=== PATIENT | male | born 1965 | race American Indian/Alaskan Native ===

== ENCOUNTER 2018-02-25 14:32 | Inpatient (IN) | payer OTHER ==
[2018-02-25 14:54] VITALS: BMI 24.5
--- NOTE | 2018-02-25 16:46 | HP ---
CIWA Score - Admission Criteria [facility]ASAS Guidelines: Admission for Medically Managed Detox: Requires at least one of the followin. CIWA greater than 12 2. Seizures within the past 24 hours 3. Delirium tremens within the past 24 hours 4. Hallucinations within the past 24 hours 5. Acute intervention needed for co occurring medical disorder 6. Acute intervention needed for co occurring psychiatric disorder 7. Severe withdrawal that cannot be handled at a lower level of care (continued vomiting, continued diarrhea, abnormal vital signs) requiring intravenous medication and/or fluids 8. Admission ROS BHS - HPI Chief Complaint: 53 yo just finished 7 day detox at [facility]. Left the hospital 1 week ago. Says he has not had any alcohol since then. Would like to stop drinking. Denies use of other drugs. Does not have family closeby. Med problems: Seizures- says from head injury BPH-on flomax h/o CVA: resolved, no focal weakness Poor memory: says he may have head injury in the past- does not remember details Does not work, PCP at [facility] DUR: no controlled substances Utox- no substancesm except BZO- from detox last week. pt denies use Allergies/Adverse Reactions: Allergies Allergy/AdvReac Type Severity Reaction Status Date / Time No Known Allergies Allergy Verified 02/25/18 16:52 Exam Limitations: No Limitations, Clinical Condition, Other (pt states has poor memory) - Ebola screening Have you traveled outside of the country in the last 21 days: No Have you had contact with anyone from an Ebola affected area: No Have you been sick,other than usual withdrawal symptoms: No Do you have a fever: No Patient History - Patient Medical History Hx Hypercholesterolemia: Yes Hx Dementia: Yes (pt states he has poor memory- h/o head injury? Pt does not remember) Hx Depression: Yes Other Medical History: BPH, nasal congestion - Patient Surgical History Other Surgical History: h/o amputations of R hand- missing 4th finger and partial amputation of 2nd - PPD History Previous Implant?: Yes - Smoking Cessation Smoking history: Current every day smoker Have you smoked in the past 12 months: Yes Aproximately how many cigarettes per day: 5 Hx Chewing Tobacco Use: No Initiated information on smoking cessation: Yes 'Breaking Loose' booklet given: 02/25/18 - Substance & Tx. History Hx Alcohol Use: Yes - Substances Abused Alcohol-vodka Amount used: 1-2 pts. Age of first use: 20 Date of Last Use: 02/18/18 Family Disease History - Family Disease History Family History: Unable to Obtain (pt does not remember) Admission Physical Exam S - Vital Signs Vital Signs: Vital Signs - 24 hr 02/25/18 14:52 Temperature 98.3 F Pulse Rate 77 Respiratory 20 Rate Blood Pressure 122/70 - Physical General Appearance: Yes: Within Normal Limits HEENTM: Yes: Within Normal Limits Respiratory: Yes: Within Normal Limits Neck: Yes: Within Normal Limits Cardiology: Yes: Within Normal Limits Abdominal: Yes: Within Normal Limits Genitourinary: Yes: Within Normal Limits Back: Yes: Within Normal Limits Musculoskeletal: Yes: Within Normal Limits Extremities: Yes: Within Normal Limits, Other (missing R hand fingers- 4th and partial 2nd finger from [employer]) Neurological: Yes: Within Normal Limits, Fully Oriented, Alert, Normal Response , Other (remembered 2/3 items in memory) Integumentary: Yes: Within Normal Limits Lymphatic: Yes: Within Normal Limits BHS Breath Alcohol Content Breath Alcohol Content: 0 Urine Drug Screen - Results Drug Screen Negative: No Urine Drug Screen Results: BZO-Benzodiazepines Inpatient Rehab Admission - Initial Determination Are CD services needed?: Yes Free of communicable disease: Yes Not in need of hospitalization: Yes - Rehab Admission Criteria Previous failed treatment: Yes Poor recovery environment: Yes Comorbidities: Yes Lacks judgement: No Patient is meeting Inpatient Rehab admission criteria:: Yes (pt just completed alcohol detox- referred by comp field case manager)
[2018-02-25] MEDS ORDERED: LOPERAMIDE HCL 2 MG CAPSULE PO PRN (17:20)
[2018-02-25] MEDS ORDERED: P-EPHED 60MG/TRIPROLIDI 2.5MG TABLET PO PRN (17:20)
[2018-02-25] MEDS ORDERED: MENTHOL/PHENOL 1 EACH UD MM PRN (17:20)
[2018-02-25] MEDS ORDERED: IBUPROFEN 400 MG TABLET (FP) PO PRN (17:20)
[2018-02-25] MEDS ORDERED: MAG HYDROX/AL HYDROX/SIMETH 30 ML UNIT-DOSE CUP PO PRN (17:20)
[2018-02-25] MEDS ORDERED: hydrOXYzine PAMOATE 25 MG CAPSULE (FP) PO PRN (17:20)
[2018-02-25] MEDS ORDERED: MAGNESIUM CITRATE 300 ML BOTTLE PO PRN (17:20)
[2018-02-25] MEDS ORDERED: MAGNESIUM HYDROX 2400MG/30ML ORAL SUSPENSION 30 ML CUP PO PRN (17:20)
[2018-02-25] MEDS ORDERED: ACETAMINOPHEN 325 MG TABLET (FP) PO PRN (17:20)
[2018-02-25] MEDS ORDERED: guaiFENesin/D-METHORPHAN HB 10 ML UNIT-DOSE CUPS PO PRN (17:20)
[2018-02-25] MEDS: THIAMINE HCL 100 MG TABLET (FP) PO SCH (21:07)
[2018-02-25] MEDS: PHENYTOIN NA EXTENDED 100 MG CAPSULE (FP) PO SCH (21:45)
[2018-02-25] MEDS ORDERED: MELATONIN 5 MG TABLETS PO PRN (22:00)
[2018-02-25] MEDS ORDERED: TUBERCULIN PPD 5 TU/0.1ML VIAL ID ONE (22:32)
[2018-02-26] MEDS: PHENYTOIN NA EXTENDED 100 MG CAPSULE (FP) PO SCH ×3 (06:42→21:08)
[2018-02-26] MEDS: PRENATAL VITAMINS W/ FOLIC ACID TABLET (FP) PO SCH (09:51)
[2018-02-26] MEDS: NICOTINE 14 MG/24 HOURS TOPICAL PATCH TD SCH (09:51)
[2018-02-26] MEDS: TAMSULOSIN HCL 0.4 MG CAP PO SCH (09:51)
[2018-02-26] MEDS: FLUTICASONE PROP 0.05% 16 GM NASAL SPRAY NS SCH (09:52)
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
[2018-02-26 10:21] LABS: URINE APPEARANCE CLEAR; URINE BILIRUBIN NEGATIVE (<2.0 mg/dL); URINE COLOR LTYELLOW; URINE GLUCOSE (UA) NEGATIVE (NEGATIVE); URINE KETONE NEGATIVE (NEGATIVE); URINE LEUK ESTERASE NEGATIVE (NEGATIVE); URINE NITRITE NEGATIVE (NEGATIVE); URINE PROTEIN NEGATIVE (NEGATIVE); URINE UROBILINOGEN NEGATIVE mg/dL (0.2-1.0)
[2018-02-26] MEDS: SERTRALINE HCL 50 MG TABLET (FP) PO SCH (13:09)
[2018-02-26] MEDS: AMMONIUM LACTATE 12% LOTION 225 GM BOTTLE TP SCH (15:55)
[2018-02-26 16:26] LABS: HEMATOCRIT 39.4 % (35.4-49); HEMOGLOBIN 13.6 GM/dL (11.7-16.9); MCH 35.8 pg (25.7-33.7); MCHC 34.6 g/dl (32.0-35.9); MEAN CELL VOLUME 103.6 fl (80-96); MEAN PLT VOLUME 7.6 fl (7.5-11.1); PLATELET COUNT 392 K/MM3 (134-434); RBC 3.81 M/mm3 (4.00-5.60); RDW 15.8 % (11.9-15.9); WHITE BLOOD COUNT 5.5 K/mm3 (4.0-10.0)
[2018-02-26 17:15] LABS: ALBUMIN 3.7 g/dl (3.4-5.0); ALK PHOS 141 U/L (45-117); ANION GAP 7 MMOL/L (8-16); BILIRUBIN,TOTAL 0.2 mg/dL (0.2-1); BLOOD UREA NITROGEN 12 mg/dL (7-18); CALCIUM 8.8 mg/dL (8.5-10.1); CHLORIDE 107 mmol/L (98-107); CO2 27 mmol/L (21-32); CREATININE 0.8 mg/dL (0.55-1.3); GLUCOSE,RANDOM 100 mg/dL (74-106); POTASSIUM 4.2 mmol/L (3.5-5.1); SGOT/AST 29 U/L (15-37); SGPT/ALT 63 U/L (13-61); SODIUM 140 mmol/L (136-145)
[2018-02-26] MEDS: THIAMINE HCL 100 MG TABLET (FP) PO SCH (21:08)
[2018-02-27] MEDS: PHENYTOIN NA EXTENDED 100 MG CAPSULE (FP) PO SCH ×3 (06:48→21:13)
[2018-02-27] MEDS: FLUTICASONE PROP 0.05% 16 GM NASAL SPRAY NS SCH (09:57)
[2018-02-27] MEDS: NICOTINE 14 MG/24 HOURS TOPICAL PATCH TD SCH (09:57)
[2018-02-27] MEDS: PRENATAL VITAMINS W/ FOLIC ACID TABLET (FP) PO SCH (09:57)
[2018-02-27] MEDS: TAMSULOSIN HCL 0.4 MG CAP PO SCH (10:40)
[2018-02-27] MEDS: SERTRALINE HCL 50 MG TABLET (FP) PO SCH (10:41)
[2018-02-27] MEDS: AMMONIUM LACTATE 12% LOTION 225 GM BOTTLE TP SCH (10:41)
[2018-02-27] MEDS: ATORVASTATIN CA 10 MG TABLET (FP) PO SCH (21:13)
[2018-02-27] MEDS: THIAMINE HCL 100 MG TABLET (FP) PO SCH (21:13)
[2018-02-27] MEDS: RANITIDINE HCL 150 MG TABLET (FP) PO SCH (21:13)
[2018-02-28] MEDS: PHENYTOIN NA EXTENDED 100 MG CAPSULE (FP) PO SCH ×3 (07:04→21:20)
[2018-02-28] MEDS: TAMSULOSIN HCL 0.4 MG CAP PO SCH (09:29)
[2018-02-28] MEDS: PRENATAL VITAMINS W/ FOLIC ACID TABLET (FP) PO SCH (09:29)
[2018-02-28] MEDS: SERTRALINE HCL 50 MG TABLET (FP) PO SCH (09:29)
[2018-02-28] MEDS: NICOTINE 14 MG/24 HOURS TOPICAL PATCH TD SCH (09:30)
[2018-02-28] MEDS: FLUTICASONE PROP 0.05% 16 GM NASAL SPRAY NS SCH (11:25)
[2018-02-28] MEDS: RANITIDINE HCL 150 MG TABLET (FP) PO SCH ×2 (11:26→21:20)
[2018-02-28] MEDS: AMMONIUM LACTATE 12% LOTION 225 GM BOTTLE TP SCH (11:26)
[2018-02-28] MEDS: THIAMINE HCL 100 MG TABLET (FP) PO SCH (21:20)
[2018-02-28] MEDS: ATORVASTATIN CA 10 MG TABLET (FP) PO SCH (21:20)
[2018-03-01] MEDS: PHENYTOIN NA EXTENDED 100 MG CAPSULE (FP) PO SCH ×3 (06:12→21:05)
[2018-03-01] MEDS: TAMSULOSIN HCL 0.4 MG CAP PO SCH (09:57)
[2018-03-01] MEDS: SERTRALINE HCL 50 MG TABLET (FP) PO SCH (09:57)
[2018-03-01] MEDS: FLUTICASONE PROP 0.05% 16 GM NASAL SPRAY NS SCH (09:57)
[2018-03-01] MEDS: NICOTINE 14 MG/24 HOURS TOPICAL PATCH TD SCH (09:57)
[2018-03-01] MEDS: RANITIDINE HCL 150 MG TABLET (FP) PO SCH ×2 (09:57→21:05)
[2018-03-01] MEDS: AMMONIUM LACTATE 12% LOTION 225 GM BOTTLE TP SCH (09:57)
[2018-03-01] MEDS: PRENATAL VITAMINS W/ FOLIC ACID TABLET (FP) PO SCH (10:02)
[2018-03-01] MEDS: BACITRACIN 0.9 GM PACKET TP SCH (21:05)
[2018-03-01] MEDS: THIAMINE HCL 100 MG TABLET (FP) PO SCH (21:05)
[2018-03-01] MEDS: ATORVASTATIN CA 10 MG TABLET (FP) PO SCH (21:05)
[2018-03-02] MEDS: PHENYTOIN NA EXTENDED 100 MG CAPSULE (FP) PO SCH ×3 (06:54→21:07)
[2018-03-02] MEDS ORDERED: COLLOIDAL OATMEAL 1 BAR EACH TP PRN (07:19)
[2018-03-02] MEDS: PRENATAL VITAMINS W/ FOLIC ACID TABLET (FP) PO SCH (09:54)
[2018-03-02] MEDS: RANITIDINE HCL 150 MG TABLET (FP) PO SCH ×2 (09:54→21:07)
[2018-03-02] MEDS: FLUTICASONE PROP 0.05% 16 GM NASAL SPRAY NS SCH (09:54)
[2018-03-02] MEDS: BACITRACIN 0.9 GM PACKET TP SCH ×2 (09:54→21:07)
[2018-03-02] MEDS: TAMSULOSIN HCL 0.4 MG CAP PO SCH (09:54)
[2018-03-02] MEDS: SERTRALINE HCL 50 MG TABLET (FP) PO SCH (09:54)
[2018-03-02] MEDS: AMMONIUM LACTATE 12% LOTION 225 GM BOTTLE TP SCH (09:55)
[2018-03-02] MEDS: NICOTINE 14 MG/24 HOURS TOPICAL PATCH TD SCH (09:55)
--- NOTE | 2018-03-02 13:45 | PN ---
BHS Progress Note Note: C/O OLD SCAB ON THE NOSE DUE TO PREVIOUS FALL WEEKS AGO. PT ALREADY ON BACITRACIN OINTMENT. ALSO C/O OF " FUNGAL ITCH" ON GROIN AREA. Vital Signs - 24 hr 03/02/18 03/02/18 03/02/18 00:30 03:30 06:43 Temperature 98.2 F Pulse Rate 78 Respiratory 18 18 16 Rate Blood Pressure 119/70 HEALING SCAR ON BRIDGE OF NOSE. PLAN:CONTINUE BACITRACIN OINTMENT ON NOSE BRIDGE TINACTIN CREAM APPLY DIRECTED.
[2018-03-02] MEDS: TOLNAFTATE 1% CREAM 15 GM TUBE TP SCH ×2 (14:06→21:08)
[2018-03-02] MEDS: ATORVASTATIN CA 10 MG TABLET (FP) PO SCH (21:07)
[2018-03-02] MEDS: THIAMINE HCL 100 MG TABLET (FP) PO SCH (21:07)
[2018-03-03] MEDS: PHENYTOIN NA EXTENDED 100 MG CAPSULE (FP) PO SCH ×3 (07:00→21:02)
[2018-03-03] MEDS: SERTRALINE HCL 50 MG TABLET (FP) PO SCH (09:43)
[2018-03-03] MEDS: PRENATAL VITAMINS W/ FOLIC ACID TABLET (FP) PO SCH (09:43)
[2018-03-03] MEDS: RANITIDINE HCL 150 MG TABLET (FP) PO SCH ×2 (09:43→21:02)
[2018-03-03] MEDS: TAMSULOSIN HCL 0.4 MG CAP PO SCH (09:43)
[2018-03-03] MEDS: BACITRACIN 0.9 GM PACKET TP SCH ×2 (09:43→21:02)
[2018-03-03] MEDS: NICOTINE 14 MG/24 HOURS TOPICAL PATCH TD SCH (09:43)
[2018-03-03] MEDS: FLUTICASONE PROP 0.05% 16 GM NASAL SPRAY NS SCH ×2 (09:46→21:03)
[2018-03-03] MEDS: AMMONIUM LACTATE 12% LOTION 225 GM BOTTLE TP SCH (09:47)
[2018-03-03] MEDS: TOLNAFTATE 1% CREAM 15 GM TUBE TP SCH ×2 (09:47→21:07)
[2018-03-03] MEDS: THIAMINE HCL 100 MG TABLET (FP) PO SCH (21:02)
[2018-03-03] MEDS: ATORVASTATIN CA 10 MG TABLET (FP) PO SCH (21:02)
[2018-03-04] MEDS: PHENYTOIN NA EXTENDED 100 MG CAPSULE (FP) PO SCH ×3 (06:14→21:03)
[2018-03-04] MEDS: BACITRACIN 0.9 GM PACKET TP SCH ×2 (10:07→21:01)
[2018-03-04] MEDS: SERTRALINE HCL 50 MG TABLET (FP) PO SCH ×2 (10:07→10:13)
[2018-03-04] MEDS: FLUTICASONE PROP 0.05% 16 GM NASAL SPRAY NS SCH ×2 (10:08→21:04)
[2018-03-04] MEDS: TAMSULOSIN HCL 0.4 MG CAP PO SCH (10:08)
[2018-03-04] MEDS: AMMONIUM LACTATE 12% LOTION 225 GM BOTTLE TP SCH (10:08)
[2018-03-04] MEDS: NICOTINE 14 MG/24 HOURS TOPICAL PATCH TD SCH (10:10)
[2018-03-04] MEDS: PRENATAL VITAMINS W/ FOLIC ACID TABLET (FP) PO SCH (10:11)
[2018-03-04] MEDS: TOLNAFTATE 1% CREAM 15 GM TUBE TP SCH ×2 (10:12→21:03)
[2018-03-04] MEDS: RANITIDINE HCL 150 MG TABLET (FP) PO SCH ×2 (10:12→21:03)
[2018-03-04] MEDS: ATORVASTATIN CA 10 MG TABLET (FP) PO SCH (21:01)
[2018-03-04] MEDS: THIAMINE HCL 100 MG TABLET (FP) PO SCH (21:01)
[2018-03-04] MEDS: HYDROCORTISONE 1% TOPICAL CREAM 30 GM TUBE TP SCH (21:05)
[2018-03-05] MEDS: PHENYTOIN NA EXTENDED 100 MG CAPSULE (FP) PO SCH ×3 (06:23→21:11)
[2018-03-05] MEDS: PRENATAL VITAMINS W/ FOLIC ACID TABLET (FP) PO SCH (10:06)
[2018-03-05] MEDS: TAMSULOSIN HCL 0.4 MG CAP PO SCH (10:07)
[2018-03-05] MEDS: RANITIDINE HCL 150 MG TABLET (FP) PO SCH ×2 (10:07→21:11)
[2018-03-05] MEDS: BACITRACIN 0.9 GM PACKET TP SCH ×2 (10:07→21:11)
[2018-03-05] MEDS: FLUTICASONE PROP 0.05% 16 GM NASAL SPRAY NS SCH ×2 (10:08→21:11)
[2018-03-05] MEDS: NICOTINE 14 MG/24 HOURS TOPICAL PATCH TD SCH (10:11)
[2018-03-05] MEDS: HYDROCORTISONE 1% TOPICAL CREAM 30 GM TUBE TP SCH ×2 (10:11→22:08)
[2018-03-05] MEDS: TOLNAFTATE 1% CREAM 15 GM TUBE TP SCH ×2 (10:12→21:13)
[2018-03-05] MEDS: AMMONIUM LACTATE 12% LOTION 225 GM BOTTLE TP SCH (10:13)
[2018-03-05] MEDS: THIAMINE HCL 100 MG TABLET (FP) PO SCH (21:11)
[2018-03-05] MEDS: ATORVASTATIN CA 10 MG TABLET (FP) PO SCH (21:11)
[2018-03-06] MEDS: PHENYTOIN NA EXTENDED 100 MG CAPSULE (FP) PO SCH ×3 (07:00→23:31)
[2018-03-06 07:03] VITALS: BP 116/68; PULSE 85; TEMP 97.8
[2018-03-06] MEDS: SERTRALINE HCL 50 MG TABLET (FP) PO SCH (09:42)
[2018-03-06] MEDS: RANITIDINE HCL 150 MG TABLET (FP) PO SCH ×2 (09:42→23:33)
[2018-03-06] MEDS: BACITRACIN 0.9 GM PACKET TP SCH ×2 (09:42→23:31)
[2018-03-06] MEDS: FLUTICASONE PROP 0.05% 16 GM NASAL SPRAY NS SCH ×2 (09:42→23:31)
[2018-03-06] MEDS: PRENATAL VITAMINS W/ FOLIC ACID TABLET (FP) PO SCH (09:42)
[2018-03-06] MEDS: TAMSULOSIN HCL 0.4 MG CAP PO SCH (09:42)
[2018-03-06] MEDS: HYDROCORTISONE 1% TOPICAL CREAM 30 GM TUBE TP SCH ×2 (09:43→23:31)
[2018-03-06] MEDS: AMMONIUM LACTATE 12% LOTION 225 GM BOTTLE TP SCH (09:43)
[2018-03-06] MEDS: NICOTINE 14 MG/24 HOURS TOPICAL PATCH TD SCH (09:44)
[2018-03-06] MEDS: TOLNAFTATE 1% CREAM 15 GM TUBE TP SCH ×2 (09:46→23:32)
[2018-03-06] MEDS ORDERED: LACTATED RINGERS SOLUTION 1,000 ML/1,000 ML INFUS.BAG IV SCH (23:15)
[2018-03-06] MEDS: THIAMINE HCL 100 MG TABLET (FP) PO SCH (23:32)
[2018-03-06] MEDS: ATORVASTATIN CA 10 MG TABLET (FP) PO SCH (23:32)
[2018-03-07] MEDS ORDERED: ENOXAPARIN NA (PORCINE) 40 MG/0.4 ML DISP.SYRIN SQ SCH (10:00)
== END 2018-03-07 01:07 | disposition short-term general hospital (02) | DRG 895 ==
LOC: YASAS 14:32 → Y5N 17:34
PROVIDERS: ADMIT Psychiatry & Neurology Psychiatry; ATTEND Internal Medicine
PROC: HZ42ZZZ Group Counseling for Substance Abuse Treatment, Cognitive-Behavioral (ICD-10-PCS; principal; 2018-02-25)
DX: F10.20 Alcohol dependence, uncomplicated (principal); F33.9 Major depressive disorder, recurrent, unspecified; F19.282 Other psychoactive substance dependence with psychoactive substance-induced sleep disorder; F17.210 Nicotine dependence, cigarettes, uncomplicated; F06.30 Mood disorder due to known physiological condition, unspecified; F19.24 Other psychoactive substance dependence with psychoactive substance-induced mood disorder; G40.909 Epilepsy, unspecified, not intractable, without status epilepticus; E78.5 Hyperlipidemia, unspecified; B35.6 Tinea cruris; N40.0 Benign prostatic hyperplasia without lower urinary tract symptoms; Z89.021 Acquired absence of right finger(s); Z86.73 Personal history of transient ischemic attack (TIA), and cerebral infarction without residual deficits
CPT/HCPCS: 36415; 80053; 81003; 85027; 86593; 87389

== ENCOUNTER 2018-03-06 18:50 | Inpatient (IN) | payer OTHER ==
--- NOTE | 2018-03-06 18:57 | PDOC ---
Attending Attestation - HPI HPI: 03/06/18 19:20 Patient is a 53 year old male with past medical history of alcohol abuse, seizures (on dilantin), history of CVA (no residual deficits), and depression who arrives via EMS from [facility] s/p seizure tonight. As per EMS, patient was witnessed to have a seizure by his roommate and was seen foaming at his mouth. When EMS arrived, patient was postictal, yet responsive. En route to ED, patient began seizing again and 5 of Versed was given. Activity lasted about 2 minutes, but patient became unresponsive afterwords. In the ED, patient is responsive to painful stimuli, O2 sat was 93 on room air, 99.4 rectal temperature, and fingerstick was 97. Patient underwent detox in [facility] last week and is being treated at [facility] for withdrawal since 02/25/18. As per nurses at [facility], patient reports he "wasn't feeling well" the past few days and note a decrease in appetite and feeling tired overall. - Physicial Exam PE: 03/06/18 19:22 GENERAL: somnolent, responsive to painful stimuli, postictal. Moving all extremities. HEAD: No signs of trauma LUNGS: Breath sounds equal, clear to auscultation bilaterally. No wheezes, and no crackles HEART: Tachycardic, normal S1 and S2, no murmurs, rubs or gallops ABDOMEN: Soft, nontender, normoactive bowel sounds. EXTREMITIES: Normal range of motion, no edema. NEUROLOGICAL: Cranial nerves II through XII grossly intact. SKIN: Warm, Dry, normal turgor, no rashes or lesions noted. - Critical Care Time Total Critical Care Time: 60 Critical Care Statement: The care of this patient involved high complexity decision making to prevent further life threatening deterioration of the patient 's condition and/or to evaluate & treat vital organ system(s) failure or risk of failure. - Medical Decision Making 03/06/18 19:23 Documentation prepared by Flavia Cruz, acting as neuropsychology medical consultant for Maryann Tenorio MD. <Flavia Cruz - Last Filed: 03/06/18 20:13> - Resident Resident Name: Katya Dietrich - ED Attending Attestation I have performed the following: I have examined & evaluated the patient, The case was reviewed & discussed with the resident, I agree w/resident's findings & plan, Exceptions are as noted - Medical Decision Making 03/06/18 18:56 EKG - Sinus rhythm, rate of 101 bpm, axis nml, intervals nml, no st elevation or depression, t waves upright 03/06/18 20:06 Laboratory Tests 03/06/18 03/06/18 03/06/18 18:57 19:28 19:28 WBC 11.3 H Hgb 13.4 Hct 40.2 Plt Count 249 D Neutrophils % 73.8 PT with INR 11.00 INR 0.93 VBG pH 7.13 L* POC VBG pCO2 41.2 POC VBG pO2 88.9 H Mixed VBG HCO3 13.2 L* 03/06/18 21:34 CT - 03/06/18 21:34 Dilantin level - low Dilantin loaded 03/06/18 21:39 CT: Encephalomalacia noted left frontal lobe no intra or extra axial mass lesions, no mass effect or bleed 03/06/18 21:44 unclear if this was alcohol withdrawal (pt states he drank 2 days ago, this seems unlikely given admission to detox but still a possibility) vs. seizure d/ o (pt dilantin level LOW) <Maryann Tenorio - Last Filed: 03/10/18 07:34>
[2018-03-06 19:04] VITALS: BMI 22.1
--- NOTE | 2018-03-06 19:18 | PDOC ---
History of Present Illness - General Chief Complaint: Seizure Stated Complaint: SEIZURE Time Seen by Provider: 03/06/18 18:56 - History of Present Illness Initial Comments: 03/06/18 19:27 * HPI obtained from EMS and supplemented from staff report @ [facility] The patient is a 53 year old male with a PMH of Alcohol Abuse, Seizures, CVA ( unknown residual deficits), TBI who was BIBEMS from [facility] for witnessed seizures. Patient had witnessed seizure with tonic clonic movements and foaming at the mouth. Post-Ictal when EMS arrived 911 called and patient had second seizure en route. S/p Versed (5 mg). BS 90's. At presentation patient responsive to sternal rub, Temp 99.4, HR 104, BP 102/56 SpO2 90's on RA. @ 2100: Case d/w Britni (RN @ [facility]) - states patient declined dinner this evening and was laying in bed conversing with roommate when he displayed tonic clonic movements (@ approximately 1800). Staff called to room and noted foaming @ mouth. 911 called. Patient has h/o seizure disorder and has been receiving anti -seizure meds @ [facility]. Patient entered rehab on 02/25 and has not been drinking since that time. Past History - Past Medical History Allergies/Adverse Reactions: Allergies Allergy/AdvReac Type Severity Reaction Status Date / Time No Known Allergies Allergy Verified 03/06/18 19:04 Home Medications: Ambulatory Orders Fluticasone Propionate 1 spray NS DAILY 02/25/18 Hydrocortisone 1% Cream [Hytone 1% Cream -] 1 applic TP BID 02/25/18 Phenytoin Na Extended [Dilantin -] 100 mg PO TID 02/25/18 hydrOXYzine HCL [Atarax -] 25 mg PO QID PRN 02/25/18 Acetaminophen [Tylenol] 650 mg PO PRN PRN 03/06/18 Atorvastatin Calcium [Lipitor] 10 mg PO HS 03/06/18 Guaifenesin [Robitussin] 10 ml PO PRN PRN 03/06/18 Ibuprofen [Motrin -] 400 mg PO PRN PRN 03/06/18 Lactic Acid [Lactinol Hx] 113.4 gm TP DAILY 03/06/18 Loperamide HCl [Loperamide] 4 mg PO PRN PRN 03/06/18 Asthma: No Cardiac Disorders: No COPD: No Dementia: Yes (pt states he has poor memory- h/o head injury? Pt does not remember) Diabetes: No GI Disorders: Yes (acid reflux) Disorders: No HTN: No Hypercholesterolemia: Yes Kidney Stones: No Psychiatric Problems: Yes Seizures: Yes Other medical history: CVA - Surgical History Abdominal Surgery: No Appendectomy: No Cardiac Surgery: No Cholecystectomy: No Lung Surgery: No Neurologic Surgery: No Orthopedic Surgery: No - Reproductive History Testicular Surgery: No - Suicide/Smoking/Psychosocial Hx Smoking History: Unknown if ever smoked Have you smoked in the past 12 months: Yes Number of Cigarettes Smoked Daily: 5 'Breaking Loose' booklet given: 02/25/18 Hx Alcohol Use: Yes Drug/Substance Use Hx: No Substance Use Type: Alcohol (Started drinking alcohol at age 20, consumes 1-2 pints of vodka daily. Last drank on 02/18/18) Hx Substance Use Treatment: Yes (Claims that he cannot recall but has been a few times) Review of Systems - Review of Systems Able to Perform ROS?: No *Physical Exam - Vital Signs Last Vital Signs Temp Pulse Resp BP Pulse Ox 99.4 F 104 H 16 106/56 L 95 03/06/18 18:58 03/06/18 18:58 03/06/18 18:58 03/06/18 18:58 03/06/18 18:58 - Physical Exam Comments: 03/07/18 11:22 General: Responsive to sternal rub/withdraws from painful stimuli, non-verbal HEENT: Pupils reactive, no mastoid ecchymosis/periorbital ecchymosis CV: S1/S2, Tachycardic Respiratory: CLTA B/L Extremity: warm 2+ DP pulses B/L Integumentary: not track mon, lesions/abrasions Moderate Sedation - Procedure Monitoring Vital Signs: Procedure Monitoring Vital Signs Temperature 99.4 F 03/06/18 18:58 Pulse Rate 104 H 03/06/18 18:58 Respiratory Rate 16 03/06/18 18:58 Blood Pressure 106/56 L 03/06/18 18:58 O2 Sat by Pulse Oximetry (%) 95 03/06/18 18:58 ED Treatment Course - LABORATORY CBC & Chemistry Diagram: 03/06/18 19:28 03/07/18 01:53 Medical Decision Making - Medical Decision Making 03/06/18 19:51 53 year old male BIBEMS s/p witnessed seizure x2. S/p Versed (5 mg) en route to ED. No noted head trauma. At presentation, responsive to sternal rub but non-verbal. Frontal diagnosis: Alcoholic withdrawal vs. Seizure disorder 2/2 to non-adherence to medication. Also consider (but less likely) CVA/TIA, malignancy, electrolyte derangement. Will obtain Head CT, Repeat BS, CBC/CMP, EKG. Reassess. 03/06/18 20:[address] pending Lactic Acidosis 14.6 c/w seizure; IV fluids hanging Patient reassessed @ bedside, VS: 123/77, HR 74, [id number]% on RA Drowsy but arousable to verbal stimuli. A&O x3. States his last alcoholic drink was 2 days previous and he has a h/o seizures when withdrawing from alcohol; cannot recall date of last seizure Dilantin level pending UDS pending A review of EMR shows patient on Dilantin [address] negative Dilantin level low - will give loading dose and admit for further evaluation including neurology consult as well as CIWA monitoring as patient states he has a h/o DT's and is within window as last drink within 48 hours. Clinical Impression: Seizure 2/2 to poor medication adherence vs. suboptimal anti-seizure medication dosing +/- Delirum Tremens *DC/Admit/Observation/Transfer Diagnosis at time of Disposition: Seizure - Discharge Dispostion Condition at time of disposition: Fair Decision to Admit order: Yes - Referrals - Patient Instructions - Post Discharge Activity
[2018-03-06 19:51] LABS: BASO % 0.2 % (0-2.0); EOS % 1.2 % (0-4.5); HEMATOCRIT 40.2 % (35.4-49); HEMOGLOBIN 13.4 GM/dL (11.7-16.9); LYMPH % 17.8 % (8-40); MCH 34.4 pg (25.7-33.7); MCHC 33.3 g/dl (32.0-35.9); MEAN CELL VOLUME 103.1 fl (80-96); MEAN PLT VOLUME 9.3 fl (7.5-11.1); NEUT % 73.8 % (42.8-82.8); PLATELET COUNT 249 K/MM3 (134-434); RDW 15.5 % (11.9-15.9); WHITE BLOOD COUNT 11.3 K/mm3 (4.0-10.0)
[2018-03-06 19:52] LABS: VENOUS PC02 41.2 mmHg (38-52); VENOUS PO2 88.9 mmHg (28-48)
[2018-03-06 19:55] LABS: VENOUS PH 7.13 (7.32-7.42)
[2018-03-06 20:04] LABS: INR 0.93 (0.83-1.09)
[2018-03-06 20:07] LABS: ACTIVATED PTT 23.4 SECONDS (25.2-36.5)
[2018-03-06 20:19] LABS: ALBUMIN 3.9 g/dl (3.4-5.0); ALK PHOS 137 U/L (45-117); ANION GAP 20 MMOL/L (8-16); BILIRUBIN,TOTAL 0.1 mg/dL (0.2-1); BLOOD UREA NITROGEN 19 mg/dL (7-18); CALCIUM 8.8 mg/dL (8.5-10.1); CHLORIDE 102 mmol/L (98-107); CO2 16 mmol/L (21-32); CREATININE 1.1 mg/dL (0.55-1.3); GLUCOSE,RANDOM 116 mg/dL (74-106); POTASSIUM 4.6 mmol/L (3.5-5.1); SGOT/AST 41 U/L (15-37); SGPT/ALT 50 U/L (13-61); SODIUM 137 mmol/L (136-145); TOT PROT 7.4 g/dl (6.4-8.2)
[2018-03-06] MEDS ORDERED: SODIUM CHLORIDE 0.9% 1000 ML INFUS.BAG IV ONE (20:45)
[2018-03-06] MEDS ORDERED: SODIUM CHLORIDE 0.9% 1000 ML INFUS.BAG IV SCH (20:45)
[2018-03-06] MEDS ORDERED: ACETAMINOPHEN 1000 MG/100 ML VIAL (NON FORMULARY) IVPB ONE (20:52)
[2018-03-06] MEDS ORDERED: ACETAMINOPHEN INJECTION 100 ML IVPB ONE (20:55)
[2018-03-06] MEDS ORDERED: PHENYTOIN SODIUM 100 MG/2 ML VIAL IVPB ONE (21:41)
--- NOTE | 2018-03-06 22:36 | PN ---
Teaching Attending Note Name of Resident: Charlotte Romero ATTENDING PHYSICIAN STATEMENT I saw and evaluated the patient. I reviewed the resident's note and discussed the case with the resident. I agree with the resident's findings and plan as documented. SUBJECTIVE: Seen and examined; please see resident note for further historical documentation. Briefly, this is a 53 y/o male presenting from [facility] for seizures x2; he had a witnessed sz by his roommate shortly after 6PM and was documented by the ER as foaming at the mouth and having general tonic-clonic movements. ER notes that per their conversation with his facility he was "post ictal but responsive." He was documented as having a second seizure that he was given 5 of versed for (which terminated it) en route while with EMS. He was post ictal; not documented if loss of bowel or bladder fn. Somewhat poor historian now; he is confused to the events that just happened and cannot recall the seizure. Denies recent EtOH or drug abuse; was in rehab last week in [facility] for EtOH (Utox was +for BZD in past but the notes state that this is from the drugs he got in rehab). He denies any drinking between [facility] and [facility]. Given IV dilantin in the ER; dilantin level low at 4.6. He has a documented history of seizures that are documented as being 2/2 head trauma, CVA. Elevated Lactate with AG+ Metabolic Acidosis 10 sys ROS done and negative aside from HPI PMH and PSH reviewed FH asked and noncontributory Socially he just completed rehab and denies any recent EtOH abuse, drug abuse. He is homeless, unemployed. Medication list reviewed; reconciliation pending OBJECTIVE: VS, labs, imaging reviewed NAD, AAO, resting comfortably in bed NC EOMI; minor non-bleeding indications of tongue biting, etc. with good hemostasis RRR s1/2 no mgr Lungs CTAB w/ sym exp NT ND +BS CN2-12 wnl, some slow responses but AAOx3, moves all 4 limbs with 5/5 strength and normal sensory. Normal mood, flat affect, appropriate behavior Lab show unremarkable CBC aside from macrocytosis and mild leukocytosis to 11; chemistry and VBG with anion gap positive metabolic acidosis with +lactate with mildly elevated LFTs. Negative RPR and HIV from previous visit. UA unremarkable as well CXR pending EKG with sinus tachy, no concerning ST-T changes CT head with encephalomalacia in the L frontal lobe with no acute changes ASSESSMENT AND PLAN: Patient presents from [facility] with seizure x2; h/o sz on phenytoin 100 TID but also drinks which can confound the issue 1) Breakthrough Seizure -x2; convincing story. Low dilantin level. Given 300 in ER. He could be seizing from his underlying seizures as a breakthrough; he completed rehab last week in [facility] for EtOH which would be an inciting factor but based on the timing it likely would not be a withdrawal seizure (though of course the recent events could be implicated in reducing his threshold; of course he could have been drinking since he left [facility] and got into [facility] but he denies and his CIWA is 0.). He will be monitored on the floor with neuro checks , seizure precautions. No meningeal signs. -Utox pending but should be noted he got BZD at his detox -Consider neuro consultation in the AM -Abstain from EtOH in the future; avoid drugs that lower sz threshold. -He is intermittently noncompliant with his dilantin as an outpatient; consult SW and case management social worker to discuss with him 2) Anion Gap Positive Lactic Metabolic Acidosis -Due to seizure; hydrated in ER and will recheck ABG, Lactate, BMP after bolus. -No s/s sepsis; monitor. Stable hemodynamics. 3) EtOH abuse -Completed detox in [facility], now at [facility]. Denies intermittent abuse -Thiamine, folate -Monitor CIWA; should be well out of window for acute WD 4) BPH -Reconcile and continue home meds 5) H/O CVA -No noted residual defects; monitor. Recommend OP FU. Reconcile and continue home meds. 6) Leukocytosis -Likely reactive to the seizures; monitor CBC and for fevers 7) Transaminitis -Mild, likely 2/2 EtOH. Will check RUQ US and HCV Ab. FENA -LR@60cc/hr overnight -PRN replete -NPO until breakfast -As tolerated Full Code
[2018-03-06] MEDS ORDERED: LACTATED RINGERS SOLUTION 1,000 ML/1,000 ML INFUS.BAG IV SCH (23:00)
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
[2018-03-07 02:17] LABS: ANION GAP 8 MMOL/L (8-16); BLOOD UREA NITROGEN 13 mg/dL (7-18); CHLORIDE 108 mmol/L (98-107); CO2 23 mmol/L (21-32); CREATININE 0.8 mg/dL (0.55-1.3); GLUCOSE,RANDOM 98 mg/dL (74-106); POTASSIUM 3.9 mmol/L (3.5-5.1); SODIUM 139 mmol/L (136-145)
[2018-03-07 02:28] LABS: URINE APPEARANCE CLEAR; URINE BILIRUBIN NEGATIVE (<2.0 mg/dL); URINE COLOR LTYELLOW; URINE GLUCOSE (UA) NEGATIVE (NEGATIVE); URINE KETONE NEGATIVE (NEGATIVE); URINE LEUK ESTERASE NEGATIVE (NEGATIVE); URINE NITRITE NEGATIVE (NEGATIVE); URINE PROTEIN NEGATIVE (NEGATIVE); URINE UROBILINOGEN NEGATIVE mg/dL (0.2-1.0)
[2018-03-07 02:36] LABS: COCAINE, UR NEGATIVE ng/ml (CUTOFF=300); METHADONE, UR NEGATIVE ng/ml (CUTOFF=300); OPIATES, URI NEGATIVE ng/ml (CUTOFF=300); PHENCYCLIDINE,URINE NEGATIVE ng/ml (CUTOFF=25); URINE AMPHETAMINES NEGATIVE ng/ml (CUTOFF=500); URINE BARBITURATES NEGATIVE ng/ml (CUTOFF=200)
[2018-03-07 02:44] LABS: URINE BENZODIAZEPINES POSITIVE ng/ml (CUTOFF=200)
[2018-03-07] MEDS: PHENYTOIN NA EXTENDED 100 MG CAPSULE (FP) PO SCH ×2 (07:07→13:54)
[2018-03-07] MEDS ORDERED: chlordiazePOXIDE HCL 25 MG CAPSULE PO PRN (08:15)
--- NOTE | 2018-03-07 08:42 | EKG ---
Test Reason : Blood Pressure : / mmHG Vent. Rate : 101 BPM Atrial Rate : 101 BPM P-R Int : 148 ms QRS Dur : 078 ms QT Int : 340 ms P-R-T Axes : 056 043 049 degrees QTc Int : 440 ms SINUS TACHYCARDIA OTHERWISE NORMAL ECG NO PREVIOUS ECGS AVAILABLE Confirmed by FRANCESCO CANALES, YARI ([id number]) on 03/07/2018 8:42:05 AM Referred By: Confirmed By:YARI MAYA MD
[2018-03-07 09:29] LABS: ALBUMIN 3.4 g/dl (3.4-5.0); ALK PHOS 126 U/L (45-117); BILIRUBIN,DIRECT 0.1 mg/dL (0.0-0.2); BILIRUBIN,TOTAL 0.3 mg/dL (0.2-1); SGOT/AST 23 U/L (15-37); SGPT/ALT 38 U/L (13-61); TOT PROT 6.1 g/dl (6.4-8.2)
[2018-03-07] MEDS ORDERED: THIAMINE HCL 100 MG TABLET (FP) PO SCH (10:00)
[2018-03-07] MEDS ORDERED: ENOXAPARIN NA (PORCINE) 40 MG/0.4 ML DISP.SYRIN SQ SCH (10:00)
[2018-03-07] MEDS ORDERED: HYDROCORTISONE 1% TOPICAL CREAM 30 GM TUBE TP SCH (10:00)
[2018-03-07] MEDS ORDERED: FLUTICASONE PROP 0.05% 16 GM NASAL SPRAY NS SCH (10:00)
[2018-03-07] MEDS ORDERED: FOLIC ACID 1 MG TABLET (FP) PO SCH (10:00)
[2018-03-07] MEDS ORDERED: RANITIDINE HCL 150 MG TABLET (FP) PO SCH (10:00)
[2018-03-07] MEDS ORDERED: TAMSULOSIN HCL 0.4 MG CAP PO SCH (10:00)
[2018-03-07] MEDS ORDERED: hydrOXYzine HCL 25 MG TABLET (FP) PO SCH (10:00)
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
[2018-03-07 16:14] VITALS: BP 114/68; PULSE 61; TEMP 98.6
[2018-03-07] MEDS ORDERED: ATORVASTATIN CA 10 MG TABLET (FP) PO SCH (22:00)
[2018-03-08] MEDS ORDERED: ASPIRIN COATED 81 MG TABLET.EC PO SCH (10:00)
[2018-03-09 05:27] LABS: HEP.C VIRUS AB <0.1 s/co ratio (0.0-0.9)
== END 2018-03-07 18:00 | disposition home or self-care (01) | DRG 101 ==
LOC: JER 18:50 → SUPCPDRO 18:50 → JERBED 22:01 → UNDOADMOB 22:01 → OBSVTOIN 23:07 → JERBED 23:07 → INTOOBSV 23:07 → JER 03-07 18:00
PROVIDERS: ADMIT Internal Medicine; ATTEND Internal Medicine
DX: G40.802 Other epilepsy, not intractable, without status epilepticus (principal); E87.2 Acidosis; E78.5 Hyperlipidemia, unspecified; N40.0 Benign prostatic hyperplasia without lower urinary tract symptoms; F10.10 Alcohol abuse, uncomplicated; G93.89 Other specified disorders of brain; D72.829 Elevated white blood cell count, unspecified; F32.9 Major depressive disorder, single episode, unspecified; Z91.14 Patient's other noncompliance with medication regimen; Z86.73 Personal history of transient ischemic attack (TIA), and cerebral infarction without residual deficits
CPT/HCPCS: 36415; 70450-TC; 71045-TC-FY; 76705-TC; 80048; 80053; 80074; 80076; 80185; 80307; 81003; 82550; 82553; 82803; 83605; 84484; 85025; 85610; 85730; 86803; 87086; 93005; 93010; 99285-25; G0378; J0131; J7030

== ENCOUNTER 2018-03-07 18:25 | Inpatient (IN) | payer OTHER ==
--- NOTE | 2018-03-07 20:04 | HP ---
REYNALDO [facility]NAL[facility] Rehab Assess/Revision - Admission History Admitted to Rehab from: Emergency Department Date of Admission to Rehab: 03/07/18 - Vital signs Vital Signs: Vital Signs Temperature 98.7 F 03/07/18 18:23 Pulse Rate 74 03/07/18 18:23 Respiratory Rate 18 03/07/18 18:23 Blood Pressure 103/65 03/07/18 18:23 O2 Sat by Pulse Oximetry (%) - Findings Detox History & Physical reviewed: No (pt did not undergo detox at this facility ) Comments/Additional Findings: Pt was sent from Rehab (5N) to the ED 03/06/18 s/p seizures. Returned today from the ED to continue Rehab Inpatient Rehab Admission - Initial Determination Are CD services needed?: Yes Not in need of hospitalization: Yes - Rehab Admission Criteria Patient is meeting Inpatient Rehab admission criteria:: Yes (Pt returned from Ed today to continue rehab)
[2018-03-07] MEDS ORDERED: guaiFENesin/D-METHORPHAN HB 10 ML UNIT-DOSE CUPS PO PRN (20:16)
[2018-03-07] MEDS ORDERED: ACETAMINOPHEN 325 MG TABLET (FP) PO PRN (20:16)
[2018-03-07] MEDS ORDERED: LOPERAMIDE HCL 2 MG CAPSULE PO PRN (20:16)
[2018-03-07] MEDS ORDERED: MAGNESIUM HYDROX 2400MG/30ML ORAL SUSPENSION 30 ML CUP PO PRN (20:16)
[2018-03-07] MEDS ORDERED: IBUPROFEN 400 MG TABLET (FP) PO PRN (20:16)
[2018-03-07] MEDS ORDERED: MAGNESIUM CITRATE 300 ML BOTTLE PO PRN (20:16)
[2018-03-07] MEDS ORDERED: P-EPHED 60MG/TRIPROLIDI 2.5MG TABLET PO PRN (20:16)
[2018-03-07] MEDS ORDERED: MENTHOL/PHENOL 1 EACH UD MM PRN (20:16)
[2018-03-07] MEDS ORDERED: MAG HYDROX/AL HYDROX/SIMETH 30 ML UNIT-DOSE CUP PO PRN (20:16)
[2018-03-07] MEDS ORDERED: hydrOXYzine PAMOATE 50 MG CAPSULE (FP) PO PRN (20:16)
[2018-03-07] MEDS ORDERED: guaiFENesin 200 MG/10 ML 10 ML UNIT-DOSE CUPS PO PRN (20:23)
[2018-03-07] MEDS ORDERED: hydrOXYzine HCL 25 MG TABLET (FP) PO PRN (20:23)
[2018-03-07] MEDS: THIAMINE HCL 100 MG TABLET (FP) PO SCH ×2 (21:23→21:24)
[2018-03-07] MEDS: PHENYTOIN NA EXTENDED 100 MG CAPSULE (FP) PO SCH (21:24)
[2018-03-07] MEDS: ATORVASTATIN CA 10 MG TABLET (FP) PO SCH (21:24)
[2018-03-07] MEDS: FLUTICASONE PROP 0.05% 16 GM NASAL SPRAY NS SCH (21:26)
[2018-03-07] MEDS: HYDROCORTISONE 1% TOPICAL CREAM 30 GM TUBE TP SCH (21:27)
[2018-03-08] MEDS: PHENYTOIN NA EXTENDED 100 MG CAPSULE (FP) PO SCH ×3 (06:53→21:09)
[2018-03-08] MEDS: FLUTICASONE PROP 0.05% 16 GM NASAL SPRAY NS SCH (10:24)
[2018-03-08 10:26] LABS: ALBUMIN 3.7 g/dl (3.4-5.0); ALK PHOS 152 U/L (45-117); ANION GAP 10 MMOL/L (8-16); BILIRUBIN,TOTAL 0.3 mg/dL (0.2-1); BLOOD UREA NITROGEN 13 mg/dL (7-18); CALCIUM 8.7 mg/dL (8.5-10.1); CHLORIDE 108 mmol/L (98-107); CO2 25 mmol/L (21-32); GLUCOSE,RANDOM 129 mg/dL (74-106); POTASSIUM 3.6 mmol/L (3.5-5.1); SGOT/AST 24 U/L (15-37); SGPT/ALT 45 U/L (13-61); SODIUM 143 mmol/L (136-145); TOT PROT 7.2 g/dl (6.4-8.2)
[2018-03-08 10:37] LABS: HEMATOCRIT 38.9 % (35.4-49); HEMOGLOBIN 13.6 GM/dL (11.7-16.9); MCH 35.6 pg (25.7-33.7); MEAN CELL VOLUME 101.5 fl (80-96); MEAN PLT VOLUME 9.1 fl (7.5-11.1); PLATELET COUNT 224 K/MM3 (134-434); RBC 3.83 M/mm3 (4.00-5.60); RDW 14.9 % (11.9-15.9)
[2018-03-08] MEDS ORDERED: COLLOIDAL OATMEAL 1 BAR EACH TP PRN (11:04)
[2018-03-08] MEDS: PRENATAL VITAMINS W/ FOLIC ACID TABLET (FP) PO SCH (12:23)
[2018-03-08] MEDS: ASPIRIN COATED 81 MG TABLET.EC PO SCH (12:24)
[2018-03-08] MEDS: HYDROCORTISONE 1% TOPICAL CREAM 30 GM TUBE TP SCH ×2 (12:27→21:10)
[2018-03-08] MEDS: THIAMINE HCL 100 MG TABLET (FP) PO SCH ×2 (12:27→21:09)
--- NOTE | 2018-03-08 15:27 | DS ---
Physical Exam: SUBJECTIVE: Please see attending's note for subjective and physical exam. OBJECTIVE: HOSPITAL COURSE: Date of Admission:03/07/18 Date of Discharge: 03/08/18 Patient is a 53 year old male with past medical history of EtOH abuse, HLD, BPH , seizures (on dilantin), Hx of CVA, and depression, BIBEMS from [facility] after 2 episodes of witnessed seizures. Upon arrival at the ED, patient was noted to have low dilantin level, and was given 300mg dose. On review of med list, patient may have not been receiving his dose of Dilantin 100mg TID, and at home have been taking the medication the wrong way with 300mg daily. Head CT was negative of any acute intracranial pathology. Patient remained seizure free the rest of his hospital stay. He was discharged back to [facility] for rehab. Minutes to complete discharge: 35 Discharge Summary Reason For Visit: REHAB - [facility] ER - Instructions - Home Medications Comprehensive Discharge Medication List: Ambulatory Orders Fluticasone Propionate 1 spray NS DAILY 02/25/18 Hydrocortisone 1% Cream [Hytone 1% Cream -] 1 applic TP BID 02/25/18 Phenytoin Na Extended [Dilantin -] 100 mg PO TID 02/25/18 hydrOXYzine HCL [Atarax -] 25 mg PO QID PRN 02/25/18 Acetaminophen [Tylenol] 650 mg PO PRN PRN 03/06/18 Atorvastatin Calcium [Lipitor] 10 mg PO HS 03/06/18 Guaifenesin [Robitussin -] 10 ml PO PRN PRN 03/06/18 Ibuprofen [Motrin -] 400 mg PO PRN PRN 03/06/18 Lactic Acid [Lactinol Hx] 113.4 gm TP DAILY 03/06/18 Loperamide HCl [Loperamide] 4 mg PO PRN PRN 03/06/18 Aspirin Coated [Ecotrin -] 81 mg PO DAILY tablet.ec 03/07/18 Thiamine HCl [Vitamin B1 -] 100 mg PO DAILY tablet 03/07/18 This patient is new to me today: No Emergency Visit: Yes ED Registration Date: 03/07/18 Care time: The patient presented to the Emergency Department on the above date and was hospitalized for further evaluation of their emergent condition. Critical Care patient: No - Discharge Referral Referred to [facility] Med P.C.: No
[2018-03-08] MEDS: AMMONIUM LACTATE 12% LOTION 225 GM BOTTLE TP SCH (16:18)
[2018-03-08] MEDS: LACTIC ACID TP SCH ×2 (16:35→16:36)
[2018-03-08] MEDS: ATORVASTATIN CA 10 MG TABLET (FP) PO SCH (21:09)
[2018-03-09] MEDS: PHENYTOIN NA EXTENDED 100 MG CAPSULE (FP) PO SCH ×3 (06:52→21:23)
--- NOTE | 2018-03-09 08:35 | PN ---
[facility] Progress Note Note: 0830: CALLED BY NURSE TO SEE PT WHO "MIGHT BE HAVING A SEIZURE". SAW PT LAYING IN BED BUT NOT RESPONDING VERBALLY. PT ABLE TO FOLLOW VERBAL COMMAND-MY HAND DIRECTIONS , CHEST DISCOMFORT WHEN ASKED ABOUT CHEST PAIN, Vital Signs - 24 hr 03/09/18 03/09/18 03/09/18 00:30 03:30 07:09 Temperature 98.5 F Pulse Rate 79 Respiratory 18 18 17 Rate Blood Pressure 135/81 VITAL SIGNS DURING EPISODE: BP 141/72 P 76 T100.3 RR 18 BLOOD SUGAR 108 MG/DL CARDIAC:S1 S2 RRR, (-)MURMUR LUNGS CTA PULSE OX:98% ROOM AIR AT ABOUT 0835:PT HAD ONE WITNESSED ACTIVE GENERALIZED SEIZURE WITH CLENCHING OF TEETH, TIGHTENING FACIAL MUSCLES AND DEVIATION OF MOUTH WITH DROOLING. DURATION:30 SECONDS TO ONE MINUTE. LETHARGY POST EPISODE. NO INCONTINENCE. Active Medications Generic Name Dose Route Start Last Admin Trade Name Freq PRN Reason Stop Dose Admin Acetaminophen 650 mg 03/07/18 20:16 Tylenol - PO Q4H PRN FEVER Al Hydroxide/Mg Hydroxide 30 ml 03/07/18 20:16 Mylanta Oral Suspension - PO Q6H PRN DYSPEPSIA Aspirin 81 mg 03/08/18 10:00 03/08/18 12:24 Ecotrin - PO 81 mg DAILY LISA Administration Atorvastatin Calcium 10 mg 03/07/18 22:00 03/08/18 21:09 Lipitor - PO 10 mg HS LISA Administration Eucalyptus/Menthol/Phenol/Sorbitol 1 each 03/07/18 20:16 Cepastat Lozenge - MM Q4H PRN SORE THROAT Fluticasone Propionate 1 spray 03/07/18 20:30 03/08/18 10:24 Flonase - NS 1 spray DAILY LISA Administration Guaifenesin 10 ml 03/07/18 20:16 Robitussin Dm - PO Q6H PRN COUGH Guaifenesin 10 ml 03/07/18 20:23 Robitussin - PO PRN PRN COUGH Hydrocortisone 1 applic 03/07/18 22:00 03/08/18 21:10 Hytone 1% Cream - TP Not Given BID LISA Hydroxyzine HCl 25 mg 03/07/18 20:23 Atarax - PO Q6H PRN AGITATION Hydroxyzine Pamoate 50 mg 03/07/18 20:16 Vistaril - PO Q4H PRN AGITATION Ibuprofen 400 mg 03/07/18 20:16 Motrin - PO Q6H PRN Pain level 4-6 Lactic Acid 1 applic 03/08/18 15:30 03/08/18 16:18 Lac-Hydrin 12 TP Not Given DAILY LISA Loperamide HCl 4 mg 03/07/18 20:16 Imodium - PO Q6H PRN DIARRHEA Magnesium Citrate 300 ml 03/07/18 20:16 Citroma - PO Q48H PRN CONSTIPATION Magnesium Hydroxide 30 ml 03/07/18 20:16 Milk Of Magnesia - PO DAILY PRN CONSTIPATION Melatonin 5 mg 03/07/18 22:00 Melatonin PO HS PRN INSOMNIA Phenytoin Sodium 100 mg 03/07/18 22:00 03/09/18 06:52 Dilantin - PO 100 mg TID LISA Administration Multivit/Folic Acid/Iron 1 tab 03/08/18 10:00 03/08/18 12:23 Vitamins (Sjr) - PO 1 tab DAILY LISA Administration Pseudoephedrine/Triprolidine 1 combo 03/07/18 20:16 Actifed - PO TID PRN NASAL CONGESTION Thiamine HCl 100 mg 03/07/18 22:00 03/08/18 21:09 Vitamin B1 - PO 100 mg HS LISA Administration Thiamine HCl 100 mg 03/07/18 20:30 03/08/18 12:27 Vitamin B1 - PO 100 mg DAILY LISA Administration TRANSFER TO [facility] VIA AMBULANCE. SPOKE TO WIL HILLIARD WHO AGREED TO ACCEPT THE PATIENT. PT MAY RETURN TO [facility] REHAB AFTER EVALUATION AND CLEARANCE.
[2018-03-09] MEDS: FLUTICASONE PROP 0.05% 16 GM NASAL SPRAY NS SCH (09:56)
[2018-03-09] MEDS: AMMONIUM LACTATE 12% LOTION 225 GM BOTTLE TP SCH (09:56)
[2018-03-09] MEDS: PRENATAL VITAMINS W/ FOLIC ACID TABLET (FP) PO SCH (09:56)
[2018-03-09] MEDS: HYDROCORTISONE 1% TOPICAL CREAM 30 GM TUBE TP SCH ×2 (09:56→21:24)
[2018-03-09] MEDS: ASPIRIN COATED 81 MG TABLET.EC PO SCH (09:56)
[2018-03-09] MEDS: THIAMINE HCL 100 MG TABLET (FP) PO SCH ×2 (09:56→21:23)
--- NOTE | 2018-03-09 13:55 | PN ---
[facility] Progress Note Note: RECEIVED CALL FROM FISH RAMIREZ AT [facility] ED REPORTING PT HAS BEEN STABILIZED AND WILL BE RETURNING TO [facility] TODAY. STATES PT HAD A NEURO CONSULT AND PT WILL BE ON KEPPRA 500 MG PO BID WELL DILANTIN 100 MG PO TID GOING FORWARD. Laboratory Tests 03/08/18 03/08/18 03/09/18 08:15 08:15 07:53 WBC 6.0 RBC 3.83 L Hgb 13.6 Hct 38.9 MCV 101.5 H MCH 35.6 H MCHC 35.0 RDW 14.9 Plt Count 224 MPV 9.1 Sodium 143 Potassium 3.6 Chloride 108 H Carbon Dioxide 25 Anion Gap 10 BUN 13 Creatinine 1.0 Creat Clearance w eGFR > 60 POC Glucometer 108 Random Glucose 129 H Calcium 8.7 Total Bilirubin 0.3 AST 24 ALT 45 Alkaline Phosphatase 152 H Total Protein 7.2 Albumin 3.7 PLAN:PT TO RETURN TO [facility] TODAY PER CONVERSATION WITH DR. HAINES.
[2018-03-09] MEDS: levETIRAcetam 500 MG TABLET (FP) PO SCH (21:24)
[2018-03-09] MEDS: ATORVASTATIN CA 10 MG TABLET (FP) PO SCH (21:24)
[2018-03-10] MEDS: PHENYTOIN NA EXTENDED 100 MG CAPSULE (FP) PO SCH ×3 (06:10→21:05)
[2018-03-10] MEDS: PRENATAL VITAMINS W/ FOLIC ACID TABLET (FP) PO SCH (09:38)
[2018-03-10] MEDS: FLUTICASONE PROP 0.05% 16 GM NASAL SPRAY NS SCH (09:39)
[2018-03-10] MEDS: levETIRAcetam 500 MG TABLET (FP) PO SCH ×2 (09:39→21:05)
[2018-03-10] MEDS: AMMONIUM LACTATE 12% LOTION 225 GM BOTTLE TP SCH (09:39)
[2018-03-10] MEDS: ASPIRIN COATED 81 MG TABLET.EC PO SCH (09:41)
[2018-03-10] MEDS: HYDROCORTISONE 1% TOPICAL CREAM 30 GM TUBE TP SCH ×2 (09:42→21:06)
[2018-03-10] MEDS: THIAMINE HCL 100 MG TABLET (FP) PO SCH ×2 (09:42→21:05)
[2018-03-10] MEDS: ATORVASTATIN CA 10 MG TABLET (FP) PO SCH (21:06)
[2018-03-11] MEDS: PHENYTOIN NA EXTENDED 100 MG CAPSULE (FP) PO SCH ×3 (06:41→21:11)
[2018-03-11] MEDS: levETIRAcetam 500 MG TABLET (FP) PO SCH ×2 (10:01→21:11)
[2018-03-11] MEDS: PRENATAL VITAMINS W/ FOLIC ACID TABLET (FP) PO SCH (10:01)
[2018-03-11] MEDS: FLUTICASONE PROP 0.05% 16 GM NASAL SPRAY NS SCH (10:01)
[2018-03-11] MEDS: ASPIRIN COATED 81 MG TABLET.EC PO SCH (10:01)
[2018-03-11] MEDS: AMMONIUM LACTATE 12% LOTION 225 GM BOTTLE TP SCH (10:02)
[2018-03-11] MEDS: HYDROCORTISONE 1% TOPICAL CREAM 30 GM TUBE TP SCH ×2 (10:02→21:12)
[2018-03-11] MEDS: THIAMINE HCL 100 MG TABLET (FP) PO SCH (21:10)
[2018-03-11] MEDS: ATORVASTATIN CA 10 MG TABLET (FP) PO SCH (21:11)
[2018-03-12] MEDS: PHENYTOIN NA EXTENDED 100 MG CAPSULE (FP) PO SCH ×3 (06:00→21:44)
[2018-03-12] MEDS: levETIRAcetam 500 MG TABLET (FP) PO SCH ×2 (09:53→21:44)
[2018-03-12] MEDS: PRENATAL VITAMINS W/ FOLIC ACID TABLET (FP) PO SCH (09:53)
[2018-03-12] MEDS: ASPIRIN COATED 81 MG TABLET.EC PO SCH (09:53)
[2018-03-12] MEDS: HYDROCORTISONE 1% TOPICAL CREAM 30 GM TUBE TP SCH ×2 (09:54→23:38)
[2018-03-12] MEDS: FLUTICASONE PROP 0.05% 16 GM NASAL SPRAY NS SCH (09:54)
[2018-03-12] MEDS: AMMONIUM LACTATE 12% LOTION 225 GM BOTTLE TP SCH (09:55)
[2018-03-12] MEDS: THIAMINE HCL 100 MG TABLET (FP) PO SCH (21:44)
[2018-03-12] MEDS: ATORVASTATIN CA 10 MG TABLET (FP) PO SCH (21:44)
[2018-03-12] MEDS: MELATONIN 5 MG TABLETS PO PRN (21:45)
[2018-03-13] MEDS: PHENYTOIN NA EXTENDED 100 MG CAPSULE (FP) PO SCH ×3 (06:57→21:10)
[2018-03-13] MEDS: HYDROCORTISONE 1% TOPICAL CREAM 30 GM TUBE TP SCH ×2 (09:44→21:10)
[2018-03-13] MEDS: FLUTICASONE PROP 0.05% 16 GM NASAL SPRAY NS SCH (09:44)
[2018-03-13] MEDS: ASPIRIN COATED 81 MG TABLET.EC PO SCH (09:45)
[2018-03-13] MEDS: AMMONIUM LACTATE 12% LOTION 225 GM BOTTLE TP SCH (09:45)
[2018-03-13] MEDS: PRENATAL VITAMINS W/ FOLIC ACID TABLET (FP) PO SCH (09:45)
[2018-03-13] MEDS: levETIRAcetam 500 MG TABLET (FP) PO SCH ×2 (09:45→21:10)
[2018-03-13] MEDS: ATORVASTATIN CA 10 MG TABLET (FP) PO SCH (21:10)
[2018-03-13] MEDS: THIAMINE HCL 100 MG TABLET (FP) PO SCH (21:10)
[2018-03-13] MEDS: MELATONIN 5 MG TABLETS PO PRN (21:11)
[2018-03-14] MEDS: PHENYTOIN NA EXTENDED 100 MG CAPSULE (FP) PO SCH ×3 (07:00→21:09)
[2018-03-14] MEDS: levETIRAcetam 500 MG TABLET (FP) PO SCH ×2 (09:53→21:09)
[2018-03-14] MEDS: FLUTICASONE PROP 0.05% 16 GM NASAL SPRAY NS SCH (09:53)
[2018-03-14] MEDS: PRENATAL VITAMINS W/ FOLIC ACID TABLET (FP) PO SCH (09:53)
[2018-03-14] MEDS: AMMONIUM LACTATE 12% LOTION 225 GM BOTTLE TP SCH (09:54)
[2018-03-14] MEDS: HYDROCORTISONE 1% TOPICAL CREAM 30 GM TUBE TP SCH ×2 (09:54→21:10)
[2018-03-14] MEDS: ASPIRIN COATED 81 MG TABLET.EC PO SCH (10:50)
[2018-03-14] MEDS: THIAMINE HCL 100 MG TABLET (FP) PO SCH (21:09)
[2018-03-14] MEDS: ATORVASTATIN CA 10 MG TABLET (FP) PO SCH (21:09)
[2018-03-15] MEDS: PHENYTOIN NA EXTENDED 100 MG CAPSULE (FP) PO SCH ×3 (06:40→21:16)
[2018-03-15] MEDS: FLUTICASONE PROP 0.05% 16 GM NASAL SPRAY NS SCH (09:33)
[2018-03-15] MEDS: levETIRAcetam 500 MG TABLET (FP) PO SCH ×2 (09:34→21:16)
[2018-03-15] MEDS: PRENATAL VITAMINS W/ FOLIC ACID TABLET (FP) PO SCH (09:34)
[2018-03-15] MEDS: ASPIRIN COATED 81 MG TABLET.EC PO SCH (09:35)
[2018-03-15] MEDS: AMMONIUM LACTATE 12% LOTION 225 GM BOTTLE TP SCH (09:37)
[2018-03-15] MEDS: HYDROCORTISONE 1% TOPICAL CREAM 30 GM TUBE TP SCH ×2 (09:37→21:17)
--- NOTE | 2018-03-15 15:10 | PN ---
S Progress Note Note: PT IS PROCEEDING WELL IN REHAB. REPORTS HE HAS A PCP KEYON MARINELLI NP AT [facility] ON [address], [id number]. Vital Signs - 24 hr 03/15/18 03/15/18 03:30 06:34 Temperature 97.4 F L Pulse Rate 58 L Respiratory 18 18 Rate Blood Pressure 123/77 NAD PLAN:PT INSTRUCTED TO FOLLOW UP WITH PCP AFTER REHAB TX IN ONE WEEK. FOLLOW UP WITH CD AFTERCARE TREATMENT RECOMMENDED.
[2018-03-15] MEDS: THIAMINE HCL 100 MG TABLET (FP) PO SCH (21:16)
[2018-03-15] MEDS: ATORVASTATIN CA 10 MG TABLET (FP) PO SCH (21:16)
[2018-03-16] MEDS: PHENYTOIN NA EXTENDED 100 MG CAPSULE (FP) PO SCH ×3 (06:50→21:11)
[2018-03-16] MEDS: levETIRAcetam 500 MG TABLET (FP) PO SCH ×2 (09:44→21:10)
[2018-03-16] MEDS: ASPIRIN COATED 81 MG TABLET.EC PO SCH (09:44)
[2018-03-16] MEDS: PRENATAL VITAMINS W/ FOLIC ACID TABLET (FP) PO SCH (09:44)
[2018-03-16] MEDS: FLUTICASONE PROP 0.05% 16 GM NASAL SPRAY NS SCH (09:45)
[2018-03-16] MEDS: AMMONIUM LACTATE 12% LOTION 225 GM BOTTLE TP SCH (09:46)
[2018-03-16] MEDS: HYDROCORTISONE 1% TOPICAL CREAM 30 GM TUBE TP SCH ×2 (09:46→21:11)
[2018-03-16] MEDS: THIAMINE HCL 100 MG TABLET (FP) PO SCH (21:10)
[2018-03-16] MEDS: ATORVASTATIN CA 10 MG TABLET (FP) PO SCH (21:10)
[2018-03-16] MEDS: MELATONIN 5 MG TABLETS PO PRN (21:11)
[2018-03-17] MEDS: PHENYTOIN NA EXTENDED 100 MG CAPSULE (FP) PO SCH ×3 (06:13→21:10)
[2018-03-17] MEDS: PRENATAL VITAMINS W/ FOLIC ACID TABLET (FP) PO SCH (10:06)
[2018-03-17] MEDS: ASPIRIN COATED 81 MG TABLET.EC PO SCH (10:06)
[2018-03-17] MEDS: levETIRAcetam 500 MG TABLET (FP) PO SCH ×2 (10:06→21:10)
[2018-03-17] MEDS: FLUTICASONE PROP 0.05% 16 GM NASAL SPRAY NS SCH (10:07)
[2018-03-17] MEDS: AMMONIUM LACTATE 12% LOTION 225 GM BOTTLE TP SCH (10:07)
[2018-03-17] MEDS: HYDROCORTISONE 1% TOPICAL CREAM 30 GM TUBE TP SCH ×2 (10:07→21:11)
--- NOTE | 2018-03-17 11:11 | PN ---
Psychiatric Progress Note Vital Signs: Vital Signs Period Temp Pulse Resp BP Sys/Monterroso Pulse Ox Last 24 Hr 97.6 F 67 18-18 119/75 Date of Session: 03/17/18 Chief Complaint:: Discharge visit HPI: Patient addressed Alcohol dependence comorbid with Alcohol induced mood disorder. ROS: BPH,Tinea cruris,H/O CVA,H/O Seizures. Current Medications: Active Medications Generic Name Dose Route Start Last Admin Trade Name Freq PRN Reason Stop Dose Admin Acetaminophen 650 mg 03/07/18 20:16 Tylenol - PO Q4H PRN FEVER Al Hydroxide/Mg Hydroxide 30 ml 03/07/18 20:16 Mylanta Oral Suspension - PO Q6H PRN DYSPEPSIA Aspirin 81 mg 03/08/18 10:00 03/17/18 10:06 Ecotrin - PO 81 mg DAILY LISA Administration Atorvastatin Calcium 10 mg 03/07/18 22:00 03/16/18 21:10 Lipitor - PO 10 mg HS LISA Administration Eucalyptus/Menthol/Phenol/Sorbitol 1 each 03/07/18 20:16 Cepastat Lozenge - MM Q4H PRN SORE THROAT Fluticasone Propionate 1 spray 03/07/18 20:30 03/17/18 10:07 Flonase - NS Not Given DAILY LISA Guaifenesin 10 ml 03/07/18 20:16 Robitussin Dm - PO Q6H PRN COUGH Guaifenesin 10 ml 03/07/18 20:23 Robitussin - PO PRN PRN COUGH Hydrocortisone 1 applic 03/07/18 22:00 03/17/18 10:07 Hytone 1% Cream - TP Not Given BID LISA Hydroxyzine HCl 25 mg 03/07/18 20:23 Atarax - PO Q6H PRN AGITATION Hydroxyzine Pamoate 50 mg 03/07/18 20:16 03/16/18 21:11 Vistaril - PO 50 mg Q4H PRN Administration AGITATION Ibuprofen 400 mg 03/07/18 20:16 Motrin - PO Q6H PRN Pain level 4-6 Lactic Acid 1 applic 03/08/18 15:30 03/17/18 10:07 Lac-Hydrin 12 TP Not Given DAILY [facility] Levetiracetam 500 mg 03/09/18 22:00 03/17/18 10:06 Keppra - PO 500 mg BID LISA Administration Loperamide HCl 4 mg 03/07/18 20:16 Imodium - PO Q6H PRN DIARRHEA Magnesium Citrate 300 ml 03/07/18 20:16 Citroma - PO Q48H PRN CONSTIPATION Magnesium Hydroxide 30 ml 03/07/18 20:16 Milk Of Magnesia - PO DAILY PRN CONSTIPATION Melatonin 5 mg 03/07/18 22:00 03/16/18 21:11 Melatonin PO 5 mg HS PRN Administration INSOMNIA Phenytoin Sodium 100 mg 03/07/18 22:00 03/17/18 06:13 Dilantin - PO 100 mg TID LISA Administration Multivit/Folic Acid/Iron 1 tab 03/08/18 10:00 03/17/18 10:06 Vitamins (Sjr) - PO 1 tab DAILY LISA Administration Pseudoephedrine/Triprolidine 1 combo 03/07/18 20:16 Actifed - PO TID PRN NASAL CONGESTION Thiamine HCl 100 mg 03/07/18 22:00 03/16/18 21:10 Vitamin B1 - PO 100 mg HS LISA Administration Current Side Effect: No Lab tests ordered: No Lab tests reviewed: Yes Provider note:: Patient will complete this program tomorrow 03/18/18.he has met his treatment goals and will continue to address his issues on outpatient basis at [facility].Patient will continue Vistaril 50 mg po PRN for anxiety ,Melatonin 5 mg po hs for insomnia. Supportive therapy provided focusing on relapse prevention,coping skills,support utilization has been discussed as well as other resourses to maintain recovery. Patient is stable for discharge tomorrow 03/18/18. Total face to face time:: 30 Mental Status Exam - Mental Status Exam Alert and Oriented to: Time, Place, Person Cognitive Function: Grossly Intact Patient Appearance: Well Groomed Mood: Euthymic Affect: Mood Congruent Patient Behavior: Appropriate, Cooperative Speech Pattern: Clear Voice Loudness: Normal Thought Process: Goal Oriented Thought Disorder: Not Present Hallucinations: Denies Suicidal Ideation: Denies Homicidal Ideation: Denies Insight/Judgement: Fair Sleep: Fair Appetite: Fair Muscle strength/Tone: Normal Gait/Station: Normal Psychiatric Treatment Plan - Problem List (1) Alcohol dependence Current Visit: No (2) Substance induced mood disorder Current Visit: No (3) Tinea cruris Current Visit: No (4) BPH (benign prostatic hyperplasia) Current Visit: No
[2018-03-17] MEDS: THIAMINE HCL 100 MG TABLET (FP) PO SCH (21:10)
[2018-03-17] MEDS: ATORVASTATIN CA 10 MG TABLET (FP) PO SCH (21:10)
[2018-03-17] MEDS: MELATONIN 5 MG TABLETS PO PRN (21:10)
[2018-03-18 06:40] VITALS: BP 128/69; PULSE 73; TEMP 97.7
[2018-03-18] MEDS: PHENYTOIN NA EXTENDED 100 MG CAPSULE (FP) PO SCH (06:49)
--- NOTE | 2018-03-18 10:12 | PN ---
[facility] Progress Note Note: NURSE ERIN REPORTED THIS MORNING TO SAND DIGGER ABOUT PT C/O TO HER OF BRUISE ON LEFT UPPER ARM. SAW AND SPOKE TO PT WHO WAS NOT SURE WHEN HE SUSTAINED THE BRUISE BUT STATES IT WAS PROBABLY DURING PHLEBOTOMY PROCEDURE WITH THE TOURNIQUET. LEFT UPPER ARM: HEALING BRUISE OF ABOUT 1/3 CIRCUMFERENCE OF UPPER ARM. DRY, NO DRAINAGE NOTED. Vital Signs Temperature 97.7 F 03/18/18 06:37 Pulse Rate 73 03/18/18 06:37 Respiratory Rate 16 03/18/18 06:37 Blood Pressure 128/69 03/18/18 06:37 O2 Sat by Pulse Oximetry (%) PLAN:BACITRACIN OINTMENT APPLY DIRECTED.
--- NOTE | 2018-03-18 10:26 | PN ---
[facility] Progress Note Note: PT COMPLETED REHAB TODAY. PT MET WITH HIS COUNSELOR AZRA SHAH AND WAS REFERRED TO [facility] INPATIENT TREATMENT FOR [facility] FOR MEDICAL/PSYCH MANAGEMENT IN [place], [place]. PT ALSO REPORTS USE OF [facility] FOR MEDICAL MANAGEMENT IN THE PAST AND MAY USE FACILITY IF IN THE VICINITY. ALERT O X 3. COURTESY RX FOR KEPPRA 500 MG PO BID # 60; DILANTIN 100 MG PO TID #90; LIPITOR 10 MG PO HS #30; ASPIRIN 81 MG PO DAILY #30 ELECTRONICALLY SENT TO [facility] FOR PT PICKUP. Vital Signs - 24 hr 03/18/18 03/18/18 03/18/18 00:30 03:30 06:37 Temperature 97.7 F Pulse Rate 73 Respiratory 18 18 16 Rate Blood Pressure 128/69 Laboratory Tests 03/08/18 03/08/18 03/09/18 08:15 08:15 07:53 WBC 6.0 RBC 3.83 L Hgb 13.6 Hct 38.9 MCV 101.5 H MCH 35.6 H MCHC 35.0 RDW 14.9 Plt Count 224 MPV 9.1 Sodium 143 Potassium 3.6 Chloride 108 H Carbon Dioxide 25 Anion Gap 10 BUN 13 Creatinine 1.0 Creat Clearance w eGFR > 60 POC Glucometer 108 Random Glucose 129 H Calcium 8.7 Total Bilirubin 0.3 AST 24 ALT 45 Alkaline Phosphatase 152 H Total Protein 7.2 Albumin 3.7 Active Medications Generic Name Dose Route Start Last Admin Trade Name Freq PRN Reason Stop Dose Admin Acetaminophen 650 mg 03/07/18 20:16 Tylenol - PO Q4H PRN FEVER Al Hydroxide/Mg Hydroxide 30 ml 03/07/18 20:16 Mylanta Oral Suspension - PO Q6H PRN DYSPEPSIA Aspirin 81 mg 03/08/18 10:00 03/17/18 10:06 Ecotrin - PO 81 mg DAILY LISA Administration Atorvastatin Calcium 10 mg 03/07/18 22:00 03/17/18 21:10 Lipitor - PO 10 mg HS LISA Administration Bacitracin 1 applic 03/18/18 10:30 Bacitracin - TP DAILY LISA Eucalyptus/Menthol/Phenol/Sorbitol 1 each 03/07/18 20:16 Cepastat Lozenge - MM Q4H PRN SORE THROAT Fluticasone Propionate 1 spray 03/07/18 20:30 03/17/18 10:07 Flonase - NS Not Given DAILY LISA Guaifenesin 10 ml 03/07/18 20:16 Robitussin Dm - PO Q6H PRN COUGH Guaifenesin 10 ml 03/07/18 20:23 Robitussin - PO PRN PRN COUGH Hydrocortisone 1 applic 03/07/18 22:00 03/17/18 21:11 Hytone 1% Cream - TP Not Given BID LISA Hydroxyzine HCl 25 mg 03/07/18 20:23 Atarax - PO Q6H PRN AGITATION Hydroxyzine Pamoate 50 mg 03/07/18 20:16 03/16/18 21:11 Vistaril - PO 50 mg Q4H PRN Administration AGITATION Ibuprofen 400 mg 03/07/18 20:16 Motrin - PO Q6H PRN Pain level 4-6 Lactic Acid 1 applic 03/08/18 15:30 03/17/18 10:07 Lac-Hydrin 12 TP Not Given DAILY [facility] Levetiracetam 500 mg 03/09/18 22:00 03/17/18 21:10 Keppra - PO 500 mg BID LISA Administration Loperamide HCl 4 mg 03/07/18 20:16 Imodium - PO Q6H PRN DIARRHEA Magnesium Citrate 300 ml 03/07/18 20:16 Citroma - PO Q48H PRN CONSTIPATION Magnesium Hydroxide 30 ml 03/07/18 20:16 Milk Of Magnesia - PO DAILY PRN CONSTIPATION Melatonin 5 mg 03/07/18 22:00 03/17/18 21:10 Melatonin PO 5 mg HS PRN Administration INSOMNIA Phenytoin Sodium 100 mg 03/07/18 22:00 03/18/18 06:49 Dilantin - PO 100 mg TID LISA Administration Multivit/Folic Acid/Iron 1 tab 03/08/18 10:00 03/17/18 10:06 Vitamins (Sjr) - PO 1 tab DAILY LISA Administration Pseudoephedrine/Triprolidine 1 combo 03/07/18 20:16 Actifed - PO TID PRN NASAL CONGESTION Thiamine HCl 100 mg 03/07/18 22:00 03/17/18 21:10 Vitamin B1 - PO 100 mg HS LISA Administration NAD PLAN:FOLLOW UP WITH CD AFTERCARE AND MEDICAL/PSYCH MANAGEMENT ABOVE. REMINDED PATIENT TO TAKE HIS SEIZURE MEDICATIONS RECOMMENDED.
[2018-03-18] MEDS: ASPIRIN COATED 81 MG TABLET.EC PO SCH (10:40)
[2018-03-18] MEDS: FLUTICASONE PROP 0.05% 16 GM NASAL SPRAY NS SCH (10:40)
[2018-03-18] MEDS: HYDROCORTISONE 1% TOPICAL CREAM 30 GM TUBE TP SCH (10:41)
[2018-03-18] MEDS: PRENATAL VITAMINS W/ FOLIC ACID TABLET (FP) PO SCH (10:41)
[2018-03-18] MEDS: levETIRAcetam 500 MG TABLET (FP) PO SCH (10:41)
[2018-03-18] MEDS: AMMONIUM LACTATE 12% LOTION 225 GM BOTTLE TP SCH (10:41)
[2018-03-18] MEDS ORDERED: BACITRACIN 0.9 GM PACKET TP SCH (10:45)
== END 2018-03-18 11:00 | disposition home or self-care (01) | DRG 895 ==
LOC: YASAS 18:25 → Y5N 18:26
PROVIDERS: ADMIT Psychiatry & Neurology Psychiatry; ATTEND Psychiatry & Neurology Psychiatry
PROC: HZ42ZZZ Group Counseling for Substance Abuse Treatment, Cognitive-Behavioral (ICD-10-PCS; principal; 2018-03-07)
DX: F10.20 Alcohol dependence, uncomplicated (principal); F19.24 Other psychoactive substance dependence with psychoactive substance-induced mood disorder; F10.24 Alcohol dependence with alcohol-induced mood disorder; N40.0 Benign prostatic hyperplasia without lower urinary tract symptoms; B35.6 Tinea cruris; G40.909 Epilepsy, unspecified, not intractable, without status epilepticus; Z86.73 Personal history of transient ischemic attack (TIA), and cerebral infarction without residual deficits
CPT/HCPCS: 36415; 80053; 82962; 85027

== ENCOUNTER 2018-03-09 09:20 | Emergency (ER) | payer OTHER ==
--- NOTE | 2018-03-09 09:28 | PDOC ---
History of Present Illness - General Stated Complaint: SEIZURE - History of Present Illness Initial Comments: 03/09/18 09:28 Mr. Watson is a 53 yo male w/ pmh of EtOH abuse, HLD, BPH, seizure disorder (on dilantin), CVA, depression BIBA from [facility] following seizure earlier today. Patient reportedly was non-verbal but following commands for 5 minutes followed by a 30s - 1 minute tonic/clonic episode. EMS was called and reports patients post ictal on their arrival. Patient had additional tonic/clonic episode while en route and was given 5mg of versed IV. Patient takes dilantin 100mg TID for his seizures. Past History - Past Medical History Allergies/Adverse Reactions: Allergies Allergy/AdvReac Type Severity Reaction Status Date / Time No Known Allergies Allergy Verified 03/09/18 09:48 Home Medications: Ambulatory Orders Fluticasone Propionate 1 spray NS DAILY 02/25/18 Hydrocortisone 1% Cream [Hytone 1% Cream -] 1 applic TP BID 02/25/18 Phenytoin Na Extended [Dilantin -] 100 mg PO TID 02/25/18 hydrOXYzine HCL [Atarax -] 25 mg PO QID PRN 02/25/18 Acetaminophen [Tylenol] 650 mg PO PRN PRN 03/06/18 Atorvastatin Calcium [Lipitor] 10 mg PO HS 03/06/18 Guaifenesin [Robitussin -] 10 ml PO PRN PRN 03/06/18 Ibuprofen [Motrin -] 400 mg PO PRN PRN 03/06/18 Lactic Acid [Lactinol Hx] 113.4 gm TP DAILY 03/06/18 Loperamide HCl [Loperamide] 4 mg PO PRN PRN 03/06/18 Aspirin Coated [Ecotrin -] 81 mg PO DAILY tablet.ec 03/07/18 Thiamine HCl [Vitamin B1 -] 100 mg PO DAILY tablet 03/07/18 Asthma: No Cardiac Disorders: Yes COPD: No Dementia: Yes (pt states he has poor memory- h/o head injury? Pt does not remember) Diabetes: No GI Disorders: Yes Disorders: No HTN: Yes Hypercholesterolemia: Yes Kidney Stones: No Psychiatric Problems: Yes Seizures: Yes - Surgical History Abdominal Surgery: No Appendectomy: No Cardiac Surgery: No Cholecystectomy: No Lung Surgery: No Neurologic Surgery: No Orthopedic Surgery: No - Reproductive History Testicular Surgery: No - Suicide/Smoking/Psychosocial Hx Smoking History: Unknown if ever smoked Have you smoked in the past 12 months: Yes Number of Cigarettes Smoked Daily: 5 'Breaking Loose' booklet given: 02/25/18 Hx Alcohol Use: Yes Drug/Substance Use Hx: No Substance Use Type: Alcohol (Started drinking alcohol at age 20, consumes 1-2 pints of vodka daily. Last drank on 02/18/18) Hx Substance Use Treatment: No Review of Systems - Review of Systems Comments:: 03/09/18 09:28 Unable to obtain further. *Physical Exam - Physical Exam Comments: 03/09/18 09:28 GENERAL: Awake, alert, and fully oriented, in no acute distress HEAD: No signs of trauma, normocephalic, atraumatic EYES: PERRLA, EOMI, sclera anicteric, conjunctiva clear ENT: Auricles normal inspection, hearing grossly normal, nares patent, oropharynx clear without exudates. Moist mucosa NECK: Normal ROM, supple, no lymphadenopathy, JVD, or masses LUNGS: No distress, speaks full sentences, clear to auscultation bilaterally HEART: Regular rate and rhythm, normal S1 and S2, no murmurs, rubs or gallops, peripheral pulses normal and equal bilaterally. ABDOMEN: Soft, nontender, normoactive bowel sounds. No guarding, no rebound. No masses EXTREMITIES: Normal inspection, Normal range of motion, no edema. No clubbing or cyanosis. NEUROLOGICAL: Cranial nerves II through XII grossly intact. Normal speech, normal gait, no focal sensorimotor deficits SKIN: Warm, Dry, normal turgor, no rashes or lesions noted. ED Treatment Course - LABORATORY CBC & Chemistry Diagram: 03/09/18 09:40 03/09/18 09:40 Medical Decision Making - Medical Decision Making 03/09/18 12:17 Mr. Watson is a 53 yo male w/ pmh as described who presents for evaluation s /p seizure. Patient evaluated for infectious or electrolyte abnormalities; given 2mg ativan as temporizing measure upon arrival while waiting for dilantin level. Patient noted to be sub-therapeutic as below. Dilantin loading dose given. Neurology paged. 03/09/18 13:04 Discussed patient with neurology who recommended starting keppra 500mg BID dual therapy for repeated sub-therapeutic phenytoin levels. Patient given loading dose and will advise detox facility to continue keppra BID on discharge. No concern for acute process at this time. Discussed patient with WATER/WASTEWATER ENGINEER Beatriz at [facility] who will continue Keppra and Dilantin as suggested by Neuro. Discharging for return to [facility]. Laboratory Results - last 24 hr 03/09/18 03/09/18 03/09/18 09:40 09:40 09:40 WBC 9.6 RBC 3.72 L Hgb 13.0 Hct 37.3 MCV 100.1 H MCH 35.0 H MCHC 35.0 RDW 14.8 Plt Count 211 MPV 8.6 Absolute Neuts (auto) 7.8 Neutrophils % 81.3 Lymphocytes % 10.4 D Monocytes % 6.8 Eosinophils % 1.3 Basophils % 0.2 Nucleated RBC % 0 Sodium 137 Potassium 4.1 Chloride 101 Carbon Dioxide 26 Anion Gap 10 BUN 9 Creatinine 0.8 Creat Clearance w eGFR > 60 Random Glucose 102 Calcium 9.0 Total Bilirubin 0.3 AST 43 H ALT 41 Alkaline Phosphatase 149 H Total Protein 7.3 Albumin 3.8 Phenytoin 6.1 L 03/09/18 13:39 *DC/Admit/Observation/Transfer Diagnosis at time of Disposition: Seizure disorder, Seizure - Discharge Dispostion Disposition: HOME - Referrals - Patient Instructions Printed Discharge Instructions: DI for Seizure Disorder -- Adult Additional Instructions: You were evaluated today in the ER for your seizures. We found your dilantin levels to be too low. Please continue to take dilantin as proscribed. We have also advised you to start taking keppra 500mg BID. Please follow-up with primary care provider for further evaluation. Return to ER if any further seizure activity, fevers, chills, pain, or other concerning symptoms. - Post Discharge Activity
[2018-03-09] MEDS ORDERED: SODIUM CHLORIDE 1,000 ML IV STA (09:36)
[2018-03-09 09:48] VITALS: TEMP 98.5; BMI 22.1
[2018-03-09 09:56] LABS: BASO % 0.2 % (0-2.0); EOS % 1.3 % (0-4.5); HEMATOCRIT 37.3 % (35.4-49); LYMPH % 10.4 % (8-40); MEAN CELL VOLUME 100.1 fl (80-96); MEAN PLT VOLUME 8.6 fl (7.5-11.1); MONO % 6.8 % (3.8-10.2); NEUT % 81.3 % (42.8-82.8); PLATELET COUNT 211 K/MM3 (134-434); RBC 3.72 M/mm3 (4.00-5.60); RDW 14.8 % (11.9-15.9); WHITE BLOOD COUNT 9.6 K/mm3 (4.0-10.0)
[2018-03-09] MEDS ORDERED: LORazepam 2 MG/ML SDV VIAL ONE (10:02)
--- NOTE | 2018-03-09 10:05 | PDOC ---
Attending Attestation - Resident Resident Name: Gaurav Lopez - ED Attending Attestation I have performed the following: I have examined & evaluated the patient, The case was reviewed & discussed with the resident, I agree w/resident's findings & plan - HPI HPI: 03/09/18 09:59 53-year-old male with history of multiple medical problems including BPH, seizure disorder, alcoholism with detox in the past most recently admitted to [facility] for rehabilitation complicated by seizures, likely in the setting of medication noncompliance. He was seen in the emergency department and admitted with neurology evaluation, discharged back to [facility] to continue rehabilitation on Dilantin 100 3 times a day. In the setting, patient was noted this morning to have 5 minutes of being nonverbal but otherwise responsive to commands followed by a 32nd to 1 minute generalized tonic-clonic seizure episode. He was postictal, had another seizure and rule out with EMS and was given 5 mg of Versed, arrives here for evaluation. - Physicial Exam PE: 03/09/18 10:01 afebrile, VSS alert, nad, atraumatic not speaking much but following commands and communicating with gestures. moves all extremities equally with full strength, face symmetric s1s2 regular, ctab, abd soft - Medical Decision Making 03/09/18 10:04 53-year-old male with history of known seizure disorder, subtherapeutic on Dilantin during previous admission started on 3 times a day dosing presents now with recurrent seizure at rehabilitation, atraumatic and otherwise neurologically intact but still postictal. Check levels, bridge with benzodiazepines Consider re-loading with Dilantin versus changing antiepileptic, will discuss with neurology Check labs Reassess <Yasmani Garcia - Last Filed: 03/09/18 09:59> - Medical Decision Making 03/09/18 12:21 Dr. Wyman was paged and notified via phone service. Case discussed at 12:46. <Shanae Worley - Last Filed: 03/09/18 12:46> Heart Score/ECG Review #1 ECG reviewed & interpreted by me at: 09:36 General ECG Interpretation: Sinus Rhythm, Normal Rate (70), Normal Intervals ( qtc 378, qrs 74), No acute ischemic changes <Yasmani Garcia - Last Filed: 03/09/18 09:59>
[2018-03-09 10:50] LABS: ALBUMIN 3.8 g/dl (3.4-5.0); ALK PHOS 149 U/L (45-117); ANION GAP 10 MMOL/L (8-16); BILIRUBIN,TOTAL 0.3 mg/dL (0.2-1); BLOOD UREA NITROGEN 9 mg/dL (7-18); CHLORIDE 101 mmol/L (98-107); CO2 26 mmol/L (21-32); CREATININE 0.8 mg/dL (0.55-1.3); GLUCOSE,RANDOM 102 mg/dL (74-106); POTASSIUM 4.1 mmol/L (3.5-5.1); SGOT/AST 43 U/L (15-37); SGPT/ALT 41 U/L (13-61); SODIUM 137 mmol/L (136-145); TOT PROT 7.3 g/dl (6.4-8.2)
[2018-03-09] MEDS ORDERED: FOSPHENYTOIN SODIUM 1,000 MG in SODIUM CHLORIDE 100 ML IVPB ONE (12:16)
[2018-03-09] MEDS ORDERED: levETIRAcetam 500 MG/5 ML INJECTION VIAL IVPB ONE ×2 (13:03→13:40)
[2018-03-09 16:23] VITALS: BP 138/75; PULSE 76
--- NOTE | 2018-03-09 18:11 | EKG ---
Test Reason : Blood Pressure : / mmHG Vent. Rate : 070 BPM Atrial Rate : 070 BPM P-R Int : 162 ms QRS Dur : 074 ms QT Int : 350 ms P-R-T Axes : 041 010 014 degrees QTc Int : 378 ms NORMAL SINUS RHYTHM WITH SINUS ARRHYTHMIA NORMAL ECG Confirmed by MD JJ, CLEMENTE ([id number]) on 03/09/2018 6:10:52 PM Referred By: Confirmed By:CLEMENTE GARDNER MD
== END 2018-03-09 16:22 | disposition home or self-care (01) ==
LOC: JER 09:20
PROC: 3E033NZ Introduction of Analgesics, Hypnotics, Sedatives into Peripheral Vein, Percutaneous Approach (ICD-10-PCS; principal; 2018-03-09)
PROC: 3E0337Z Introduction of Electrolytic and Water Balance Substance into Peripheral Vein, Percutaneous Approach (ICD-10-PCS; 2018-03-09)
PROC: 3E033GC Introduction of Other Therapeutic Substance into Peripheral Vein, Percutaneous Approach (ICD-10-PCS; 2018-03-09)
PROC: 3E033GC Introduction of Other Therapeutic Substance into Peripheral Vein, Percutaneous Approach (ICD-10-PCS; 2018-03-09)
DX: G40.909 Epilepsy, unspecified, not intractable, without status epilepticus (principal); I10 Essential (primary) hypertension; E78.00 Pure hypercholesterolemia, unspecified; F03.90 Unspecified dementia, unspecified severity, without behavioral disturbance, psychotic disturbance, mood disturbance, and anxiety; N40.0 Benign prostatic hyperplasia without lower urinary tract symptoms; F10.20 Alcohol dependence, uncomplicated
CPT/HCPCS: 36415; 80053; 80185; 85025; 93005; 93010; 96361; 96374; 96375; 99283-25; J7030